=== PATIENT | male | born 1985 | race Caucasian/White ===

== ENCOUNTER 2021-04-15 12:01 | Inpatient (IN) ==
[2021-04-15 12:44] LABS: Basophils # (auto) 0.02 K/uL (0-0.2); Basophils % (auto) 0.2 %; Immature Granulocytes # (auto) 0.04 K/uL (0.00-0.02); Immature Granulocytes % (auto) 0.4 %; Lymphocytes # (auto) 1.16 K/uL (1.2-3.4); Lymphocytes % (auto) 11.5 %; Mean Corpuscular Hgb Conc 34.2 g/dL (32-36); Mean Corpuscular Volume 87.6 fL (80-100); Mean Platelet Volume 10.7 fL (7.4-10.4); Monocytes # (auto) 0.77 K/uL (0.11-0.59); Monocytes % (auto) 7.6 %; Neutrophils # (auto) 7.92 K/uL (1.4-6.5); Neutrophils % (auto) 78.3 %; Platelet Count 163 K/uL (130-400); RDW Coefficient of Variation 12.8 % (11.5-14.5); RDW Standard Deviation 41.6 fL (36.4-46.3); Red Blood Count 4.34 M/uL (4.7-6.1); White Blood Count 10.11 K/uL (4.8-10.8)
[2021-04-15 13:00] LABS: Albumin Level 3.9 gm/dl (3.4-5.0); BUN Creatinine Ratio 15.1 (10-20); Calcium 8.3 mg/dl (8.5-10.1); Creatinine Clr Calc Pharmacy 127.4 ml/min; Est GFR (African American) 127.9 ml/min; Est GFR (Non-African American) 110.3 ml/min; Potassium 3.4 mmol/L (3.5-5.1)
[2021-04-15 13:13] LABS: Albumin Globulin Ratio 1.1 (0.9-2); Bilirubin,Total 1.2 mg/dl (0.2-1); Globulin 3.4 gm/dl (2.5-4.0); Total Protein 7.3 gm/dl (6.4-8.2)
[2021-04-15] MEDS ORDERED: PIPERACILL/TAZOBAC CONSULT ACTIVE PRN (13:55)
[2021-04-15] MEDS ORDERED: PIPERACILLIN/TAZOBACTAM 4.5 GM/120 ML BAG IV ONE (13:55)
[2021-04-15] MEDS ORDERED: MoRPHine SULFATE 4 MG/ML 1 ML CARP\\VIAL IV STA (13:59)
[2021-04-15] MEDS ORDERED: ONDANSETRON INJ 2 MG/ML 2 ML VIAL IV STA (13:59)
[2021-04-15] MEDS ORDERED: SODIUM CHLORIDE 0.9% 1000ML 1,000 ML IV SCH (14:00)
[2021-04-15] MEDS ORDERED: VANCOMYCIN HCL 1,750 MG in SODIUM CHLORIDE 0.9% 500 ML IV ONE (14:04)
[2021-04-15] MEDS ORDERED: VANCOMYCIN CONSULT ACTIVE PRN (14:04)
--- NOTE | 2021-04-15 14:15 | Emergency Department Note ---
History of Present Illness General Chief complaint: Swelling/Edema to Extremity Stated complaint: SWELLING IN FACE, CELLULITIS WHERE SWELLLING IS Time Seen by Provider: 04/15/21 13:49 History of Present Illness Maximum Pain Intensity: 7 This is a 35-year-old male that presents to the emergency department via private vehicle accompanied by with complaints of "swelling in face, cellulitis". The patient notes that this past Friday he began with what he describes as a pimple to the mid left forehead region. He notes no other trauma or injury to the area. This then seemed to enlarge and Friday. It was quite painful this past Friday and he tried to "pop" the area. He states that shortly thereafter he began with a tremendous amount of edema to the left periorbital region of the forehead. He presented to the ED for evaluation late yesterday evening. He underwent a CT scan that revealed periorbital cellulitis at that time. He was given IV clindamycin as well as p.o. clindamycin. He was discharged home. Patient notes worsening edema to the left parable region and now involving the right periorbital region therefore prompting return. Patient also rates current pain as a 7/10. He does note some minor discomfort to the left eye with certain movements but is unsure if that is secondary to the periorbital edema. Patient denies any pertinent past medical history, surgeries or allergies. Last dose of clindamycin was at 6 AM this morning. Home Medications Medication Instructions Recorded Confirmed Type ibuprofen 200 mg tablet 400 - 600 mg PO Q6H PRN 04/14/21 04/15/21 History clindamycin HCl 300 mg capsule 300 mg PO QID 10 Days #40 cap 04/15/21 04/15/21 Rx hydrocodone 5 mg-acetaminophen 325 1 tab PO Q6H PRN #12 tab 04/15/21 04/15/21 Rx mg tablet Allergies Allergy/AdvReac Type Severity Reaction Status Date / Time No Known Allergies Allergy Unknown Verified 04/14/21 22:15 Past Med/Surg History Medical History Alcohol use No significant past medical history Surgical History H/O hernia repair H/O right knee surgery Family History Other Heart disease Social History (Updated 04/15/21 @ 17:50 by Mariza Hutchins PA-C) Smoking Status: Current every day smoker Tobacco Type: E-cigarettes / Vaping Second Hand Exposure: No; Do You Dip or Chew Tobacco: No; Tobacco Cessation Education Requested by Patient: No Hx Alcohol Use: Yes Alcohol type: beer Alcohol Intake Frequency: 2-3 x/Week Alcohol Intake Frequency Comment: 4+ beers daily, last drink yesterday Hx Substance Use: No Preferred Language: Palauan Communication Ability: Effective Under Water Assistant Required: No Beliefs That Will Affect Care: None Current Living Situation: Spouse Other Information That Helps Us Care for You: No Feels Safe at Home: Yes Safety Concerns: Feels Safe At This Time Assistive Devices: None Review of Systems A total of 10 systems reviewed and were otherwise negative Physical Exam Vital Signs Vital Signs - 24 hr 04/15/21 12:26 Temperature 36.4 C L Temperature Source Temporal Artery Scan Pulse Rate 72 Respiratory Rate 16 Respiratory Effort / Characteristics Non-Labored Respiratory Depth Normal Blood Pressure 136/90 Blood Pressure Mean 105 Pulse Oximetry 97 Sepsis Recent Fever Within 48 Hours No Sepsis New/Unexplained Change in Mental Status No Sepsis Action Taken by Nursing No Action Required VITAL SIGNS - Vital signs and nursing notes were reviewed. Stable and afebrile. GENERAL - 35-year-old male appearing his stated age who is in no acute distress. Communicates well with provider and answers questions appropriately. SKIN -there is left periorbital erythema and edema noted as well as similar findings on the right but the left side does have increased erythema and edema compared to the right. No drainage from either orbit. There is also erythema and edema to the forehead region, predominantly the left side with what appears to be a small darkened erythematous area consistent with origin of infection. No drainage at this time. HEAD - NC/AT. EYES - PERRL with EOMI bilaterally with the eyelids retracted. No evidence of entrapment. Sclera anicteric. Edema as noted above. EARS - No deformities of external structures noted on gross examination bilaterally. No pain elicited with palpation of the tragus bilaterally. External auditory canals without discharge or otorrhea. Tympanic membranes pearly rodríguez without retraction or bulging. No fluid or purulent material visualized behind the TM. Handle of malleus, umbo, cone of light, pars tensa/flaccid all easily visualized. NOSE - Midline and without cyanosis. No epistaxis or purulent drainage noted. Septum midline without deviation or septal hematoma noted. MOUTH/OROPHARYNX - Without perioral cyanosis. Buccal mucosa pink and moist and without leukoplakia. Tongue midline with equal elevation of palate bilaterally. No tonsillar hypertrophy, erythema, or exudates noted. Good dentition noted. NECK - Neck with FROM. No nuchal rigidity. LUNGS - Chest wall symmetric without accessory muscle use, intercostals retractions, or central cyanosis. Normal vesicular breath sounds CTA B/L. No wheezes, rales, or rhonchi appreciated. CARDIAC - RRR with S1/S2. No murmur, rubs, or gallops appreciated. EXTREMITIES - No clubbing or peripheral cyanosis. +5/5 strength noted in UE/LE bilaterally. NEUROLOGIC - Cranial nerves II through XII grossly intact. PSYCH - A&Ox3 and cooperates fully with examiner. Pt is very pleasant and interacts well with examiner. Course Administered Medications Sodium Chloride (Nss 1000ml) 1,000 mls @ 125 mls/hr IV .Q8H [facility] Stop: 05/15/21 18:59 Last Admin: 04/15/21 19:52 Dose: 125 mls/hr Documented by: [id number] Metronidazole (Flagyl) 500 mg in 100 mls @ 100 mls/hr IV Q8H [facility]; Protocol Stop: 04/22/21 18:59 Last Infusion: 04/15/21 20:53 Dose: 0 mls/hr Documented by: [id number] Admin: 04/15/21 19:53 Dose: 100 mls/hr Documented by: [id number] Ceftriaxone Sodium 2,000 mg/ (Dextrose) 70 mls @ 140 mls/hr IV Q24H [facility] Stop: 04/22/21 19:59 Last Infusion: 04/15/21 20:23 Dose: 0 mls/hr Documented by: [id number] Admin: 04/15/21 19:53 Dose: 140 mls/hr Documented by: [id number] Melatonin (Melatonin 3 Mg Tab) 3 mg PO HS PRN PRN Reason: Sleep Stop: 05/15/21 19:59 Last Admin: 04/15/21 20:55 Dose: 3 mg Documented by: [id number] Discontinued Medications Sodium Chloride (Nss 1000ml) 1,000 mls @ 999 mls/hr IV .Q1H1M [facility] Stop: 04/15/21 15:00 Last Infusion: 04/15/21 16:01 Dose: 0 mls/hr Documented by: [id number] Admin: 04/15/21 14:47 Dose: 999 mls/hr Documented by: [id number] Piperacillin Sod/Tazobactam Sod (Zosyn) 4.5 gm in 120 mls @ 240 mls/hr IV NOW ONE Stop: 04/15/21 14:24 Last Infusion: 04/15/21 15:45 Dose: 0 mls/hr Documented by: [id number] Admin: 04/15/21 14:47 Dose: 240 mls/hr Documented by: [id number] Vancomycin HCl 1,750 mg/ (Sodium Chloride) 535 mls @ 200 mls/hr IV NOW ONE Stop: 04/15/21 16:44 Last Infusion: 04/15/21 19:00 Dose: 0 mls/hr Documented by: [id number] Admin: 04/15/21 16:04 Dose: 200 mls/hr Documented by: [id number] Ioversol (Optiray 320 100ml) 93 ml IV ONCE ONE Stop: 04/15/21 14:28 Last Admin: 04/15/21 14:28 Dose: 93 ml Documented by: [id number] Miscellaneous Information (Consult Pharmacy) 1 ea N/A NOW STA Stop: 04/15/21 17:21 Last Admin: 04/15/21 19:52 Dose: Not Given Documented by: [id number] Morphine Sulfate (Morphine Sulfate 4 Mg/Ml 1 Ml Carp\\Vial) 4 mg IV NOW STA Stop: 04/15/21 14:00 Last Admin: 04/15/21 14:47 Dose: 4 mg Documented by: [id number] Morphine Sulfate (Morphine Sulfate 4 Mg/Ml 1 Ml Carp\\Vial) 4 mg IV Q30M PRN PRN Reason: pain Stop: 04/29/21 15:39 Last Admin: 04/15/21 18:06 Dose: 4 mg Documented by: [id number] Admin: 04/15/21 18:03 Dose: 4 mg Documented by: [id number] Admin: 04/15/21 16:03 Dose: 4 mg Documented by: [id number] Ondansetron HCl (Ondansetron Inj 2 Mg/Ml 2 Ml Vial) 4 mg IV NOW STA Stop: 04/15/21 14:00 Last Admin: 04/15/21 14:47 Dose: 4 mg Documented by: [id number] Medical Decision Making Laboratory Data Result diagrams: 04/15/21 12:34 04/15/21 12:34 Lab Results 04/15/21 04/15/21 04/15/21 Range/Units 12:34 12:34 12:34 WBC 10.11 (4.8-10.8) K/uL RBC 4.34 L (4.7-6.1) M/uL Hgb 13.0 L (14.0-18.0) g/dL Hct 38.0 L (42-52) % MCV 87.6 (80-100) fL MCH 30.0 (25-34) pg MCHC 34.2 (32-36) g/dL RDW Std Deviation 41.6 (36.4-46.3) fL RDW Coeff of Suzanne 12.8 (11.5-14.5) % Plt Count 163 (130-400) K/uL MPV 10.7 H (7.4-10.4) fL Immature Gran % (Auto) 0.4 % Neut % (Auto) 78.3 % Lymph % (Auto) 11.5 % Wilkin % (Auto) 7.6 % Eos % (Auto) 2.0 % Baso % (Auto) 0.2 % Neut # (Auto) 7.92 H (1.4-6.5) K/uL Lymph # (Auto) 1.16 L (1.2-3.4) K/uL Wilkin # (Auto) 0.77 H (0.11-0.59) K/uL Eos # (Auto) 0.20 (0-0.5) K/uL Baso # (Auto) 0.02 (0-0.2) K/uL Immature Gran # (Auto) 0.04 H (0.00-0.02) K/uL ESR 5 (0-15) mm/hr Sodium 136 (136-145) mmol/L Potassium 3.4 L (3.5-5.1) mmol/L Chloride 104 (98-107) mmol/L Carbon Dioxide 27 (21-32) mmol/L Anion Gap 5.0 (3-11) BUN 14 (7-18) mg/dl Creatinine 0.91 (0.6-1.4) mg/dl Est Cr Clr Drug Dosing 127.4 ml/min Est GFR ( Amer) 127.9 ml/min Est GFR (Non-Af Amer) 110.3 ml/min BUN/Creatinine Ratio 15.1 (10-20) Glucose 99 (70-99) mg/dl Calcium 8.3 L (8.5-10.1) mg/dl Total Bilirubin 1.2 H D (0.2-1) mg/dl AST 21 (15-37) U/L ALT 36 (12-78) U/L Alkaline Phosphatase 81 (45-117) U/L C-Reactive Protein (0-0.29) mg/dl Total Protein 7.3 (6.4-8.2) gm/dl Albumin 3.9 (3.4-5.0) gm/dl Globulin 3.4 (2.5-4.0) gm/dl Albumin/Globulin Ratio 1.1 (0.9-2) Procalcitonin (0-0.5) ng/ml COVID-19 Eval Order SARS-CoV-2 (PCR) (Negative) 04/15/21 04/15/21 04/15/21 Range/Units 12:34 14:21 15:43 WBC (4.8-10.8) K/uL RBC (4.7-6.1) M/uL Hgb (14.0-18.0) g/dL Hct (42-52) % MCV (80-100) fL MCH (25-34) pg MCHC (32-36) g/dL RDW Std Deviation (36.4-46.3) fL RDW Coeff of Suzanne (11.5-14.5) % Plt Count (130-400) K/uL MPV (7.4-10.4) fL Immature Gran % (Auto) % Neut % (Auto) % Lymph % (Auto) % Wilkin % (Auto) % Eos % (Auto) % Baso % (Auto) % Neut # (Auto) (1.4-6.5) K/uL Lymph # (Auto) (1.2-3.4) K/uL Wilkin # (Auto) (0.11-0.59) K/uL Eos # (Auto) (0-0.5) K/uL Baso # (Auto) (0-0.2) K/uL Immature Gran # (Auto) (0.00-0.02) K/uL ESR (0-15) mm/hr Sodium (136-145) mmol/L Potassium (3.5-5.1) mmol/L Chloride (98-107) mmol/L Carbon Dioxide (21-32) mmol/L Anion Gap (3-11) BUN (7-18) mg/dl Creatinine (0.6-1.4) mg/dl Est Cr Clr Drug Dosing ml/min Est GFR ( Amer) ml/min Est GFR (Non-Af Amer) ml/min BUN/Creatinine Ratio (10-20) Glucose (70-99) mg/dl Calcium (8.5-10.1) mg/dl Total Bilirubin (0.2-1) mg/dl AST (15-37) U/L ALT (12-78) U/L Alkaline Phosphatase (45-117) U/L C-Reactive Protein 1.23 H (0-0.29) mg/dl Total Protein (6.4-8.2) gm/dl Albumin (3.4-5.0) gm/dl Globulin (2.5-4.0) gm/dl Albumin/Globulin Ratio (0.9-2) Procalcitonin < 0.05 (0-0.5) ng/ml COVID-19 Eval Order Covid19 at [facility] SARS-CoV-2 (PCR) (Negative) 04/15/21 Range/Units 15:43 WBC (4.8-10.8) K/uL RBC (4.7-6.1) M/uL Hgb (14.0-18.0) g/dL Hct (42-52) % MCV (80-100) fL MCH (25-34) pg MCHC (32-36) g/dL RDW Std Deviation (36.4-46.3) fL RDW Coeff of Suzanne (11.5-14.5) % Plt Count (130-400) K/uL MPV (7.4-10.4) fL Immature Gran % (Auto) % Neut % (Auto) % Lymph % (Auto) % Wilkin % (Auto) % Eos % (Auto) % Baso % (Auto) % Neut # (Auto) (1.4-6.5) K/uL Lymph # (Auto) (1.2-3.4) K/uL Wilkin # (Auto) (0.11-0.59) K/uL Eos # (Auto) (0-0.5) K/uL Baso # (Auto) (0-0.2) K/uL Immature Gran # (Auto) (0.00-0.02) K/uL ESR (0-15) mm/hr Sodium (136-145) mmol/L Potassium (3.5-5.1) mmol/L Chloride (98-107) mmol/L Carbon Dioxide (21-32) mmol/L Anion Gap (3-11) BUN (7-18) mg/dl Creatinine (0.6-1.4) mg/dl Est Cr Clr Drug Dosing ml/min Est GFR ( Amer) ml/min Est GFR (Non-Af Amer) ml/min BUN/Creatinine Ratio (10-20) Glucose (70-99) mg/dl Calcium (8.5-10.1) mg/dl Total Bilirubin (0.2-1) mg/dl AST (15-37) U/L ALT (12-78) U/L Alkaline Phosphatase (45-117) U/L C-Reactive Protein (0-0.29) mg/dl Total Protein (6.4-8.2) gm/dl Albumin (3.4-5.0) gm/dl Globulin (2.5-4.0) gm/dl Albumin/Globulin Ratio (0.9-2) Procalcitonin (0-0.5) ng/ml COVID-19 Eval Order SARS-CoV-2 (PCR) NEGATIVE (Negative) Imaging Data Radiologist's Impression: Face CT 04/15/21 14:23 CT facial bones w con HISTORY: 35 years-old Male L>R periorbital edema, erythema, pain. Acute facial pain and swelling COMPARISON: CT maxillofacial 04/14/2021 TECHNIQUE: Multiple axial CT images of the maxillofacial bones were obtained following the intravenous administration of 93 mL Optiray 320. A dose lowering technique was used consistent with the principals of ANEUDY. FINDINGS: Moderate subcutaneous edema with skin thickening of the forehead ascending into the left periorbital tissues and lateral left cheek. The subcutaneous edema within the left lateral cheek has progressed. Mild right periorbital s ubcutaneous edema has also mildly progressed. Ill-defined peripherally enhancing collection in the left prefrontal distribution on image 11 suggestive of phlegmon redemonstrated measuring 1.2 cm. No drainable fluid collection. Bilateral optic nerve drusen's. The bilateral globes, orbits and post septal tissues are otherwise unremarkable. Streak artifact from dental amalgam hardware. No pathologically enlarged lymph nodes. Patent airway. The imaged intracranial structures appear unremarkable. No acute fracture. Mastoid air cells and middle ear cavities are clear. No osseous erosions. Scattered dental caries redemonstrated with periapical lucency is noted involving the left mandibular central incisor and left maxillary central incisor. IMPRESSION: 1. Mildly progressed facial and periorbital cellulitis with unchanged 1.2 cm ph legmon within the left frontal soft tissues. 2. No post septal inflammatory changes. No drainable fluid collection. 3. Odontogenic disease as above. ACT 112: Negative or not required by law. The above report was generated using voice recognition software. It may contain grammatical, syntax or spelling errors. Electronically signed by: Duc Odell M.D. 04/15/2021 3:20 PM MDM Narrative Patient was seen and evaluated as above in room C04. Review was performed of nursing notes and vital signs. I did review pertinent previous visits and patient history. After obtaining a thorough history and physical examination the above work up was performed. Patient presents to us today with left greater than right periorbital edema and forehead erythema and edema. Although this certainly could be reactive edema, a worsening cellulitis cannot be ruled out. Patient was seen here in the ED and I reviewed that visit from last night. He had a CT scan of the face about 14 hours ago. Vital signs stable. Options of care were discussed with the patient. IV access established. Broad- spectrum IV antibiotics were ordered to include vancomycin and Zosyn. He was ordered morphine for pain, Zofran for nausea. Current pain 7/10. I discussed presentation with the attending physician as well as the on-call character impersonator, Dr. Chris. At this time noting the worsening symptoms a repeat CT scan of the face with contrast is recommended after discussing the case with Dr. Chris to further evaluate and ensure that at this time there has been no progression to involve the left orbit by CT. Patient aware of this and amenable to proceeding with this. Patient also seen by the attending physician. Results of the CT scan as above. Mildly progressive facial and periorbital cellulitis with unchanged 1.2 cm phlegmon within the left frontal soft tissues. No post septal inflammatory changes. No drainable fluid collection. They did comment upon some odontogenic disease. The patient at this time certainly will benefit from inpatient management. Case discussed with the hospitalist. Please refer to further documentation regarding his stay. No leukocytosis. Mild anemia noted. No emergent metabolic disturbance. Mild elevation of CRP at 1.23. Pro-Antony normal. Covid testing negative. Case was discussed with the attending physician. GCS: 15 In the evaluation and treatment of this patient, the following differential diagnoses were considered: Corneal Abrasion, Conjunctivitis, Eye Contusion, Globe Injury, Orbital Floor Injury (Blowout Fracture), Corneal Ulcer, Keratitis, Herpes Zoster Opthalmic, Blepharitis, Orbital Cellulitis, Iritis, Scleritis/E piscleritis, Uveitis, Temporal Arteritis, orbital cellulitis, periorbital cellulitis, meningitis, encephalitis, subconjunctival Hemorrhage, among others. Impression & Plan Cellulitis, face, Periorbital edema of both eyes, Periorbital cellulitis of left eye Discharge Plan Visit Data Chief Complaint: Swelling/Edema to Extremity Stated Complaint: SWELLING IN FACE, CELLULITIS WHERE SWELLLING IS ED Provider: Zakc Robb ED Midlevel Provider: Fredy Darling Discharge Problem: Cellulitis, face, Periorbital edema of both eyes, Periorbital cellulitis of left eye Patient Disposition: Admitted As Inpatient Discharge Instructions Interventions: ED Discharge Assessment Last Done: 04/15/21 18:20
[2021-04-15] MEDS ORDERED: OPTIRAY 320 100ml IV ONE (14:27)
--- NOTE | 2021-04-15 15:21 | CT Scan Report ---
CT facial bones w con HISTORY: 35 years-old Male L>R periorbital edema, erythema, pain. Acute facial pain and swelling COMPARISON: CT maxillofacial 04/14/2021 TECHNIQUE: Multiple axial CT images of the maxillofacial bones were obtained following the intravenou s administration of 93 mL Optiray 320. A dose lowering technique was used consistent with the princip als of ANEUDY. FINDINGS: Moderate subcutaneous edema with skin thickening of the forehead ascending into the left periorbital tissues and lateral left cheek. The subcutaneous edema within the left lateral cheek has progressed. Mild right periorbital subcutaneous edema has also mildly progressed. Ill-defined peripherally enhanc ing collection in the left prefrontal distribution on image 11 suggestive of phlegmon redemonstrated measuring 1.2 cm. No drainable fluid collection. Bilateral optic nerve drusen's. The bilateral globes , orbits and post septal tissues are otherwise unremarkable. Streak artifact from dental amalgam hard lam. No pathologically enlarged lymph nodes. Patent airway. The imaged intracranial structures appear unremarkable. No acute fracture. Mastoid air cells and midd le ear cavities are clear. No osseous erosions. Scattered dental caries redemonstrated with periapica l lucency is noted involving the left mandibular central incisor and left maxillary central incisor. IMPRESSION: 1. Mildly progressed facial and periorbital cellulitis with unchanged 1.2 cm phlegmon within the left frontal soft tissues. 2. No post septal inflammatory changes. No drainable fluid collection. 3. Odontogenic disease as above. ACT 112: Negative or not required by law. The above report was generated using voice recognition software. It may contain grammatical, syntax o r spelling errors. Electronically signed by: Duc Odell M.D. 04/15/2021 3:20 PM
[2021-04-15] MEDS: MoRPHine SULFATE 4 MG/ML 1 ML CARP\\VIAL IV PRN ×3 (16:03→18:06)
--- NOTE | 2021-04-15 16:04 | History & Physical Report ---
Date of Service April 15, 2021 Assessment & Plan (1) Periorbital edema of both eyes: (2) Cellulitis of face: Plan: This is a 35yo M with PMH of alcohol use who presents with worsening swelling and pain on forehead extending to eyes consistent with facial and periorbital cellulitis. Boil on forehead with erythema and edema consistent with cellulitis extending to periorbital region bilaterally Case discussed with international affairs vice president ophthalmology Dr. Chris who recommended repeat CT scan to ensure no orbital involvement Face CT with mildly progressed facial and periorbital cellulitis with unchanged 1.2 cm phlegmon within the left frontal soft tissues. No post septal i nflammatory changes. No drainable fluid collection. Given IV Zosyn and vanco in ER - plan to continue empiric abx with vanco, rocephin and flagyl IV fluids, pain control Ophtho consulted Consider repeating CT scan in AM - if evidence of developing orbital involvement, ophtho recommends transfer (3) Alcohol use: Plan: Endorses 4+ beers nightly No history of withdrawal Alchohol withdrawal precautions, at risk IV ativan PRN DVT Ppx: SCDs Code status: FULL PCP: Ryan Dispo: Admitted to PCU Patient seen in collaboration with Dr. Soliz. Please see addendum. Plan: 55-year-old gentleman with PMH of alcohol use, vitiligo, and history of recurrent boils came in today 04/15 with complaint of progressive swelling and redness over his forehead involving both his eyes. Per the patient, a boil started on left side of his forehead 4 to 5 days ago which persisted until when he ruptured it 1 day ago. Through the day the swelling spread through his left eye and he visited emergency where he was given IV clindamycin and discharged on oral clindamycin. His swelling and redness spread to the right side as well and hence he decided to visit emergency again. On examination: GENERAL: Alert and oriented x3. NAD, on RA. HEENT: Erythema and swelling over forehead and eyes (L>R), it was difficult for the patient to open his Left eye. NECK: No JVD, no neck masses. HEART: S1 and S2 heard. Regular rate and rhythm. No murmur, no gallop. RESPIRATORY SYSTEM: Normal AP diameter. No accessory muscle use. No wheezing, no crackles. ABDOMEN: Soft, bowel sounds present, nontender, no distention. CENTRAL NERVOUS SYSTEM: Alert and oriented x3. No facial droop. Speech is clear. Obeys simple commands. Moves extremities. EXTREMITIES: No edema, no erythema seen. Since the patient complains of pain with movement of his eyes but CT face is negative for orbital cellulitis. We will treat him in the line of orbital cellulitis and get ophthalmology and ID consult on him. History of Present Illness Chief Complaint: facial swelling Primary Care Provider: Leah Davis DO This is a 35yo M with PMH of alcohol use who presents with worsening swelling and pain on forehead extending to eyes. Endorses pimple/boil on mid-left forehead a few days ago that grew larger and he attempted to "pop" last evening. Became more painful and soon after developed swelling to forehead region extending to left periorbital region of the forehead. Presented to the ED for evaluation late yesterday evening and underwent a CT scan that revealed periorbital cellulitis at that time. He was given IV clindamycin and discharged home on PO clindamycin. Developed worsening edema early this morning into today extending to R periorbital region as well prompting return to ER. Endorses pain throughout face, specifically on forehead near original lesion. Also with impaired visual gan due to swelling. When he "opens" eyelids manually he denies any visual disturbance. Denies any fever, chills, lightheadedness, chest pain, SOB, nausea, vomiting, abdominal pain, dysuria, diarrhea or constipation. Allergies Allergy/AdvReac Type Severity Reaction Status Date / Time No Known Allergies Allergy Unknown Verified 04/14/21 22:15 Home Medications Medication Instructions Recorded Confirmed Type ibuprofen 200 mg tablet 400 - 600 mg PO Q6H PRN 04/14/21 04/15/21 History clindamycin HCl 300 mg capsule 300 mg PO QID 10 Days #40 cap 04/15/21 04/15/21 Rx hydrocodone 5 mg-acetaminophen 325 1 tab PO Q6H PRN #12 tab 04/15/21 04/15/21 Rx mg tablet Past Med/Surg History Medical History Alcohol use No significant past medical history Surgical History H/O hernia repair H/O right knee surgery Family History Other Heart disease Social History (Updated 04/15/21 @ 17:50 by Mariza Hutchins PA-C) Smoking Status: Current every day smoker Tobacco Type: E-cigarettes / Vaping Second Hand Exposure: No; Do You Dip or Chew Tobacco: No; Tobacco Cessation Education Requested by Patient: No Hx Alcohol Use: Yes Alcohol type: beer Alcohol Intake Frequency: 2-3 x/Week Alcohol Intake Frequency Comment: 4+ beers daily, last drink yesterday Hx Substance Use: No Preferred Language: Urdu Communication Ability: Effective Electronics Inspector Required: No Beliefs That Will Affect Care: None Current Living Situation: Spouse Other Information That Helps Us Care for You: No Feels Safe at Home: Yes Safety Concerns: Feels Safe At This Time Assistive Devices: None Review of Systems Review of Systems: At least ten systems reviewed and negative except as noted in the HPI. Physical Exam Physical Exam: General Appearance: WD/WN, vitals as above, NAD, sitting up in bed, pleasant, conversing easily Head: normocephalic, atraumatic Eyes: significant periorbital edema L>R, PERRL when eyelids manually opened, conjunctivae normal, anicteric sclerae ENT: external ear and nose normal, oropharynx normal Neck: normal visual inspection, trachea midline, no thyromegaly Respiratory: normal respiratory effort, lungs clear to auscultation, no wheeze, rales, rhonchi. No accessory muscle use Cardiovascular: regular rate, rhythm, no murmur, normal peripheral pulses, no BLE edema. Vessels: no JVD Chest: normal inspection of chest Abdomen/GI: normal bowel sounds, soft, nontender, no hepatosplenomegaly Extremities/Musculoskeletal: no cyanosis or clubbing, extremities motor strength 5/5 Neurologic: PERRL, EOMI, accommodation nl, no face palsy, no dysarthria, CN's II-XI intact bilaterally and moves all extremities Psychiatric: A+Ox3, euthymic affect Skin: normal color, warm/dry. + Mid left forehead with appearance of furuncle with surrounding erythema and edema that is painful to touch. Edema extends to periorbital region bilaterally Results & Data Results & Data ([facility]) Vital Signs (Past 12 Hours) Vital Signs Temp Pulse Resp BP Pulse Ox 04/15/21 12:26 36.4 C L 72 16 136/90 97 Laboratory Results Short CBC 04/15/21 Range/Units 12:34 WBC 10.11 (4.8-10.8) K/uL Hgb 13.0 L (14.0-18.0) g/dL Hct 38.0 L (42-52) % Plt Count 163 (130-400) K/uL BMP 04/15/21 12:34 Sodium 136 Potassium 3.4 L Chloride 104 Carbon Dioxide 27 BUN 14 Creatinine 0.91 Glucose 99 Calcium 8.3 L Liver Function 04/15/21 Range/Units 12:34 Total Bilirubin 1.2 H D (0.2-1) mg/dl AST 21 (15-37) U/L ALT 36 (12-78) U/L Alkaline Phosphatase 81 (45-117) U/L Albumin 3.9 (3.4-5.0) gm/dl Diagnostic Findings Face CT 04/15/21 14:23 CT facial bones w con HISTORY: 35 years-old Male L>R periorbital edema, erythema, pain. Acute facial pain and swelling COMPARISON: CT maxillofacial 04/14/2021 TECHNIQUE: Multiple axial CT images of the maxillofacial bones were obtained following the intravenous administration of 93 mL Optiray 320. A dose lowering technique was used consistent with the principals of ANEUDY. FINDINGS: Moderate subcutaneous edema with skin thickening of the forehead ascending into the left periorbital tissues and lateral left cheek. The subcutaneous edema within the left lateral cheek has progressed. Mild right periorbital subcutaneous edema has also mildly progressed. Ill-defined peripherally enhancing collection in the left prefrontal distribution on image 11 suggestive of phlegmon redemonstrated measuring 1.2 cm. No drainable fluid collection. Bilateral optic nerve drusen's. The bilateral globes, orbits and post septal tissues are otherwise unremarkable. Streak artifact from dental amalgam hardware. No pathologically enlarged lymph nodes. Patent airway. The imaged intracranial structures appear unremarkable. No acute fracture. Mastoid air cells and middle ear cavities are clear. No osseous erosions. Scattered dental caries redemonstrated with periapical lucency is noted involving the left mandibular central incisor and left maxillary central incisor. IMPRESSION: 1. Mildly progressed facial and periorbital cellulitis with unchanged 1.2 cm phlegmon within the left frontal soft tissues. 2. No post septal inflammatory changes. No drainable fluid collection. 3. Odontogenic disease as above. ACT 112: Negative or not required by law. The above report was generated using voice recognition software. It may contain grammatical, syntax or spelling errors. Electronically signed by: Duc Odell M.D. 04/15/2021 3:20 PM
[2021-04-15] MEDS ORDERED: CONSULT PHARMACY STA (17:20)
[2021-04-15] MEDS ORDERED: HYDROmorphone INJ 0.5 MG/0.5 ML SYR IV PRN (18:33)
[2021-04-15] MEDS ORDERED: POLYETHYLENE (MIRALAX) 17 GM PACK PO PRN (18:33)
[2021-04-15] MEDS ORDERED: ONDANSETRON INJ 2 MG/ML 2 ML VIAL IV PRN (18:33)
[2021-04-15] MEDS ORDERED: LORazepam 1 MG/2 ML VIAL IV PRN (18:33)
--- NOTE | 2021-04-15 19:47 | Pharmacy Report ---
Pharmacy Abx Dose Short Note - Date of Service April 15, 2021 - Assessment & Plan Assessment 35 year old M on empiric antibiotics for bilateral periorbital cellulitis * received vancomycin and zosyn in the ED * vancomycin continued on admission, zosyn changed to ceftriaxone + flagyl * BC pending Plan Vancomycin * Loading dose: 1750 mg IV in ED (19 mg/kg) * Maintenance dose: 1500 mg IV q8h (per AUC nomogram) * AUC/JUNIOR is the preferred PK/PD target for vancomycin * Target AUC/JUNIOR = 400-600 * AUC guided dosing is effective and associated with decreased risk of nephrotoxicity * Drug level ordered for: 04/17 @0530 Pharmacy will continue to follow and will adjust dose/frequency as necessary. Thank you.
[2021-04-15] MEDS: SODIUM CHLORIDE 0.9% 1000ML 1,000 ML IV SCH (19:52)
[2021-04-15] MEDS: metroNIDAZOLE 500 MG/100 ML BAG IV SCH (19:53)
[2021-04-15] MEDS: cefTRIAXone SODIUM 2,000 MG in DEXTROSE 5% 50 ML IV SCH (19:53)
[2021-04-15] MEDS: MELATONIN 3 MG TAB PO PRN (20:55)
[2021-04-15] MEDS: VANCOMYCIN HCL 1,500 MG in SODIUM CHLORIDE 0.9% 500 ML IV SCH (21:48)
[2021-04-16] MEDS: SODIUM CHLORIDE 0.9% 1000ML 1,000 ML IV SCH ×2 (03:52→13:36)
[2021-04-16] MEDS: metroNIDAZOLE 500 MG/100 ML BAG IV SCH ×3 (03:52→18:24)
[2021-04-16] MEDS: VANCOMYCIN HCL 1,500 MG in SODIUM CHLORIDE 0.9% 500 ML IV SCH ×3 (05:16→21:49)
[2021-04-16] MEDS: ACETAMINOPHEN 325 MG TAB PO PRN ×2 (07:32→14:31)
[2021-04-16 07:34] LABS: Hematocrit (blood only) 35.4 % (42-52); Hemoglobin 11.7 g/dL (14.0-18.0); Mean Corpuscular Hgb Conc 33.1 g/dL (32-36); Mean Corpuscular Volume 90.8 fL (80-100); Mean Platelet Volume 10.7 fL (7.4-10.4); Platelet Count 161 K/uL (130-400); RDW Coefficient of Variation 13.1 % (11.5-14.5); RDW Standard Deviation 43.6 fL (36.4-46.3); White Blood Count 8.93 K/uL (4.8-10.8)
[2021-04-16 08:06] LABS: BUN Creatinine Ratio 7.8 (10-20); Calcium 7.8 mg/dl (8.5-10.1); Creatinine Clr Calc Pharmacy 152.4 ml/min; Est GFR (African American) 138.9 ml/min; Est GFR (Non-African American) 119.9 ml/min; Potassium 3.5 mmol/L (3.5-5.1)
[2021-04-16] MEDS ORDERED: IBUPROFEN 600 MG TAB PO PRN (15:26)
--- NOTE | 2021-04-16 17:41 | Hospitalist Progress Note ---
Date of Service April 16, 2021 Assessment & Plan (1) Periorbital cellulitis: (2) Periorbital edema of both eyes: (3) Cellulitis of face: Plan: 55-year-old gentleman with PMH of alcohol use, vitiligo, and history of recurrent boils came in today 04/15 with complaint of progressive swelling and redness over his forehead involving both his eyes. Per the patient, a boil started on left side of his forehead 4 to 5 days ago which persisted until when he ruptured it 1 day ago. Through the day the swelling spread through his left eye and he visited emergency where he was given IV clindamycin and discharged on oral clindamycin. His swelling and redness spread to the right side as well and hence he decided to visit emergency again. He is managed for the following: #. Periorbital cellulitis vs orbital cellulitis Since the patient complains of pain with movement of his eyes at presentation but CT face is negative for orbital cellulitis, he was treated in the line of orbital cellulitis ID and Opthal are consulted, awaiting recommendations. Pt reports improvement in swelling and pain. c/w iv ATB until further recs from ID #. Alcohol use: Endorses 4+ beers nightly no h/o withdrawal keep alert for withdrawal symptoms while inpatient #. DVT Px: SCDs Pt eating OK, will DC IVF and repeat his labs tomorrow AM. Admission and Anticipated Discharge Date Admission Date: April 15, 2021 Subjective Patient was lying down in bed, NAD, on RA. Patient denies Headache, Dizziness, Fever, Chills, Sore throat, Cough, Chest pain, palpitations, SOB, Belly pain, pain/burning while passing urine. No issues overnight. Infact he was able to sleep well overnight. His swelling over forehead and b/l eyes has gone down markedly. Physical Exam Physical Exam: GENERAL: Alert and oriented x3. NAD, on RA. HEENT: Erythema and swelling over forehead and eyes (L>R) has gone down compared to yesterday NECK: No JVD, no neck masses. HEART: S1 and S2 heard. Regular rate and rhythm. No murmur, no gallop. RESPIRATORY SYSTEM: Normal AP diameter. No accessory muscle use. No wheezing, no crackles. ABDOMEN: Soft, bowel sounds present, nontender, no distention. CENTRAL NERVOUS SYSTEM: Alert and oriented x3. No facial droop. Speech is clear. Obeys simple commands. Moves extremities. EXTREMITIES: No edema, no erythema seen. Results & Data Results & Data ([facility]) Vital Signs (Past 12 Hours) Vital Signs Temp Pulse Pulse Resp BP Pulse Ox 04/16/21 15:36 37.1 C 72 17 127/75 96 04/16/21 14:58 69 04/16/21 10:52 36.8 C 65 17 120/77 95 04/16/21 08:01 86 04/16/21 06:58 37.2 C 73 17 122/75 93
[2021-04-16] MEDS: cefTRIAXone SODIUM 2,000 MG in DEXTROSE 5% 50 ML IV SCH (19:40)
[2021-04-16] MEDS ORDERED: GABAPENTIN 600 MG TAB PO ONE (20:50)
[2021-04-16] MEDS ORDERED: GABAPENTIN 1200MG ALCOHOL WITHDRAWAL LOAD PO STA (20:50)
[2021-04-16] MEDS ORDERED: ATIVAN IV ALCOHOL WITHDRAWL IV PRN (20:50)
[2021-04-16] MEDS: LORazepam 3 MG/6 ML VIAL IV PRN ×2 (21:14→23:36)
[2021-04-16] MEDS: LORazepam 1 MG/2 ML VIAL IV PRN (22:15)
[2021-04-17] MEDS: LORazepam 3 MG/6 ML VIAL IV PRN ×2 (00:06→01:25)
[2021-04-17] MEDS: metroNIDAZOLE 500 MG/100 ML BAG IV SCH ×2 (02:54→11:10)
[2021-04-17] MEDS: LORazepam 1 MG/2 ML VIAL IV PRN ×2 (03:16→23:04)
[2021-04-17] MEDS ORDERED: VANCOMYCIN TROUGH ONE (05:30)
[2021-04-17 05:38] LABS: Hematocrit (blood only) 35.2 % (42-52); Hemoglobin 11.8 g/dL (14.0-18.0); Mean Corpuscular Hemoglobin 30.2 pg (25-34); Mean Corpuscular Hgb Conc 33.5 g/dL (32-36); Mean Platelet Volume 10.9 fL (7.4-10.4); Platelet Count 159 K/uL (130-400); RDW Coefficient of Variation 12.8 % (11.5-14.5); RDW Standard Deviation 41.9 fL (36.4-46.3); Red Blood Count 3.91 M/uL (4.7-6.1); White Blood Count 5.97 K/uL (4.8-10.8)
[2021-04-17] MEDS: LORazepam 2 MG/4 ML VIAL IV PRN ×8 (05:43→21:54)
[2021-04-17] MEDS: VANCOMYCIN HCL 1,500 MG in SODIUM CHLORIDE 0.9% 500 ML IV SCH ×2 (05:43→13:07)
[2021-04-17] MEDS: GABAPENTIN 600 MG TAB PO SCH ×3 (05:44→21:03)
[2021-04-17 06:10] LABS: BUN Creatinine Ratio 11.1 (10-20); Creatinine Clr Calc Pharmacy 170.9 ml/min; Est GFR (African American) 144.6 ml/min; Est GFR (Non-African American) 124.7 ml/min; Potassium 3.6 mmol/L (3.5-5.1)
[2021-04-17] MEDS ORDERED: GABAPENTIN 1200MG ALCOHOL WITHDRAWAL LOAD PO STA (13:09)
[2021-04-17] MEDS ORDERED: GABAPENTIN 600 MG TAB PO ONE (13:09)
--- NOTE | 2021-04-17 14:16 | Pharmacy Report ---
Pharmacy Abx Dose Progress Nt - Date of Service April 17, 2021 - Pharmacy Dosing Scope The patient is currently receiving the following antimicrobial agents per Pharmacy consult: Vancomycin 1500 mg IV/PO every 8 hours - Objective Vital Signs (Past 12hrs): Vital Signs Temp Pulse Resp BP Pulse Ox 04/17/21 11:42 37.0 C 84 19 137/90 97 04/17/21 07:34 36.8 C 71 18 127/84 97 04/17/21 03:50 36.5 C 68 18 143/90 H 97 Lab Results (24hrs): Laboratory Tests (24 Hours) 04/17/21 04/17/21 04/17/21 05:28 05:28 05:28 WBC 5.97 Creatinine 0.69 Est Cr Clr Drug Dosing 170.9 Vancomycin Trough 10.5 - Assessment & Plan Assessment 35 year old M receiving Vancomycin for treatment of Periorbital Cellulitis Day # 3 of antimicrobial therapy ID to see patient this afternoon and make recommendations Per hospitalist- patient is improving on current regimen Plan Vancomycin IV * Trough level of 10.5 mcg/mL is near - therapeutic but on the lower end of the trough range * Considered increasing dose to achieve trough level of closer to 15 mcg/ml but after discussion with hospitalist will just continue current dosing. Pt is im proving on current dosing and ID will likely change to PO option soon. * Continue dose of 1500 mg IV every 8 hours * Goal trough level for cellulitis : 10 to 15 mcg/mL * Will re-order trough level in a few days if vanco is continued Pharmacy will continue to follow and will adjust dose/frequency as necessary. Thank you.
[2021-04-17] MEDS ORDERED: LINEZOLID CONSULT ACTIVE PRN (15:52)
[2021-04-17] MEDS ORDERED: LINEZOLID 600 MG/300 ML D5W IV SCH (17:00)
[2021-04-17] MEDS: LINEZOLID 600 MG/300 ML BAG IV SCH (17:05)
[2021-04-17] MEDS ORDERED: GABAPENTIN 600 MG TAB PO SCH (19:15)
--- NOTE | 2021-04-17 19:17 | Hospitalist Progress Note ---
Date of Service April 17, 2021 Assessment & Plan (1) Periorbital cellulitis: (2) Periorbital edema of both eyes: (3) Cellulitis of face: Plan: 55-year-old gentleman with PMH of alcohol use, vitiligo, and history of recurrent boils came in today 04/15 with complaint of progressive swelling and redness over his forehead involving both his eyes. Per the patient, a boil started on left side of his forehead 4 to 5 days ago which persisted until when he ruptured it 1 day ago. Through the day the swelling spread through his left eye and he visited emergency where he was given IV clindamycin and discharged on oral clindamycin. His swelling and redness spread to the right side as well and hence he decided to visit emergency again. He is managed for the following: #. Periorbital cellulitis vs orbital cellulitis Since the patient complains of pain with movement of his eyes at presentation but CT face is negative for orbital cellulitis, he was treated in the line of orbital cellulitis ID and Opthal are consulted, awaiting recommendations. Pt reports improvement in swelling and pain. 04/17 ID recommended stopping Rocephin and metronidazole; replacing vancomycin with linezolid. Continue with linezolid until 04/20 evening dose per ID recommendation. #. Boil On the forehead, consulted general surgery for I&D. #. Alcohol abuse/alcohol withdrawal: Endorses 4+ beers nightly no h/o withdrawal Patient underwent alcohol withdrawal on the night of 04/16 needing 60 mg of Ativan overnight per RN Continue with alcohol AWSS protocol #. DVT Px: SCDs Patient so far eating okay but might need IV fluid. We'll send CBC and lytes for tomorrow. Follow-up with result. Admission and Anticipated Discharge Date Admission Date: April 15, 2021 Subjective Patient was lying down in bedsleeping, NAD, on RA. Patient denies Headache, Dizziness, Fever, Chills, Sore throat, Cough, Chest pain, palpitations, SOB, Belly pain, pain/burning while passing urine. He underwent alcohol withdrawal overnight. He required 16 mg of Ativan overnight per RN and 2 mg in the morning. His swelling over forehead and b/l eyes has gone down markedly. Physical Exam Physical Exam: GENERAL: Alert and oriented x3. NAD, on RA. HEENT: Erythema and swelling over forehead and eyes (L>R) has gone down compared to yesterday NECK: No JVD, no neck masses. HEART: S1 and S2 heard. Regular rate and rhythm. No murmur, no gallop. RESPIRATORY SYSTEM: Normal AP diameter. No accessory muscle use. No wheezing, no crackles. ABDOMEN: Soft, bowel sounds present, nontender, no distention. CENTRAL NERVOUS SYSTEM: Alert and oriented x3. No facial droop. Speech is clear. Obeys simple commands. Moves extremities. EXTREMITIES: No edema, no erythema seen. Results & Data Results & Data ([facility]) Vital Signs (Past 12 Hours) Vital Signs Temp Pulse Resp BP Pulse Ox 04/17/21 15:29 36.9 C 74 20 138/89 96 04/17/21 11:42 37.0 C 84 19 137/90 97 04/17/21 07:34 36.8 C 71 18 127/84 97
[2021-04-17] MEDS: FOLIC ACID 1 MG TAB PO SCH (20:14)
[2021-04-17] MEDS: NICOTINE 14 MG/24 HR PATCH TD SCH (20:43)
--- NOTE | 2021-04-17 21:04 | Surgery Consultation ---
Date of Consultation April 17, 2021 Assessment & Plan (1) Cellulitis and abscess of face: pt is a 35 year-old male who was admitted to hospital for cellulitis left face, IV antibiotic treatment, not improved, pt requests to do I/D abscess on left forehead, IMP: left forehead cellulitis with abscess, Plan, I recommend to do I/D left forehead abscess tomorrow, base on pt had Dinner tonight, I called pt's , to get consent, but no one answer the phone, I will call his tomorrow, NPO after MN, pt agrees with the surgery after D/W benefits, risks nad alternatives of the surgery, History of Present Illness Reason for Consultation: abscess on left forehead Requesting Physician: Dotty Davis MD Attending Physician: Kevin Soliz MD History of Present Illness Chief Complaint: facial swelling Primary Care Provider: Leah Davis DO This is a 35yo M with PMH of alcohol use who presents with worsening swelling and pain on forehead extending to eyes. Endorses pimple/boil on mid-left forehead a few days ago that grew larger and he attempted to "pop" last evening. Became more painful and soon after developed swelling to forehead region extending to left periorbital region of the forehead. Presented to the ED for evaluation late yesterday evening and underwent a CT scan that revealed periorbital cellulitis at that time. He was given IV clindamycin and discharged home on PO clindamycin. Developed worsening edema early this morning into today extending to R periorbital region as well prompting return to ER. Endorses pain throughout face, specifically on forehead near original lesion. Also with impaired visual gan due to swelling. When he "opens" eyelids manually he denies any visual disturbance. Denies any fever, chills, lightheadedness, chest pain, SOB, nausea, vomiting, abdominal pain, dysuria, diarrhea or constipation. I ( Kamilla Farrar MD ) got a call for consult I/D left forehead abscess, I reviewed pt's H/P, labs, CT scan with pt, Allergies Allergy/AdvReac Type Severity Reaction Status Date / Time No Known Allergies Allergy Unknown Verified 04/14/21 22:15 Home Medications Medication Instructions Recorded Confirmed Type ibuprofen 200 mg tablet 400 - 600 mg PO Q6H PRN 04/14/21 04/15/21 History clindamycin HCl 300 mg capsule 300 mg PO QID 10 Days #40 cap 04/15/21 04/15/21 Rx hydrocodone 5 mg-acetaminophen 325 1 tab PO Q6H PRN #12 tab 04/15/21 04/15/21 Rx mg tablet Past Med/Surg History Medical History Alcohol use No significant past medical history Surgical History H/O hernia repair H/O right knee surgery Family History Other Heart disease Social History (Updated 04/15/21 @ 17:50 by Mariza Hutchins PA-C) Smoking Status: Current every day smoker Tobacco Type: E-cigarettes / Vaping Second Hand Exposure: No; Do You Dip or Chew Tobacco: No; Tobacco Cessation Education Requested by Patient: No Hx Alcohol Use: Yes Alcohol type: beer Alcohol Intake Frequency: 2-3 x/Week Alcohol Intake Frequency Comment: 4+ beers daily, last drink yesterday Hx Substance Use: No Preferred Language: French Communication Ability: Effective Assistant Buyer Required: No Beliefs That Will Affect Care: None Current Living Situation: Spouse Other Information That Helps Us Care for You: No Feels Safe at Home: Yes Safety Concerns: Feels Safe At This Time Assistive Devices: None Review of Systems Review of Systems: At least ten systems reviewed and negative except as noted in the HPI. Allergies Allergy/AdvReac Type Severity Reaction Status Date / Time No Known Allergies Allergy Unknown Verified 04/14/21 22:15 Home Medications Medication Instructions Recorded Confirmed Type ibuprofen 200 mg tablet 400 - 600 mg PO Q6H PRN 04/14/21 04/15/21 History clindamycin HCl 300 mg capsule 300 mg PO QID 10 Days #40 cap 04/15/21 04/15/21 Rx hydrocodone 5 mg-acetaminophen 325 1 tab PO Q6H PRN #12 tab 04/15/21 04/15/21 Rx mg tablet Patient History Medical History Alcohol use No significant past medical history Surgical History H/O hernia repair H/O right knee surgery Family History Other Heart disease Social History (Updated 04/15/21 @ 17:50 by Mariza Hutchins PA-C) Smoking Status: Current every day smoker Tobacco Type: E-cigarettes / Vaping Second Hand Exposure: No; Do You Dip or Chew Tobacco: No; Tobacco Cessation Education Requested by Patient: No Hx Alcohol Use: Yes Alcohol type: beer Alcohol Intake Frequency: 2-3 x/Week Alcohol Intake Frequency Comment: 4+ beers daily, last drink yesterday Hx Substance Use: No Preferred Language: French Communication Ability: Effective Assistant Buyer Required: No Beliefs That Will Affect Care: None Current Living Situation: Spouse Other Information That Helps Us Care for You: No Feels Safe at Home: Yes Safety Concerns: Feels Safe At This Time Assistive Devices: None Physical Exam Constitutional: WD/WN, vitals as above Eyes: left eye soft tissue edema, redness on left forehead, ENMT: external ear and nose normal, oropharynx normal Respiratory: normal respiratory effort, lungs clear to auscultation Cardiovascular: RRR, no murmur, no edema Gastrointestinal (Abdomen): normal bowel sounds, soft, nontender, no hepatosplenomegaly Neurologic: patellar DTR's 2+ bilat, sensation intact Psychiatric: A+Ox3, euthymic affect Results & Data ([facility]) Vital Signs (Past 12 Hours) Vital Signs Temp Pulse Resp BP Pulse Ox 04/17/21 15:29 36.9 C 74 20 138/89 96 04/17/21 11:42 37.0 C 84 19 137/90 97 Laboratory Results Abnormal lab results 04/17/21 04/17/21 Range/Units 05:28 05:28 RBC 3.91 L (4.7-6.1) M/uL Hgb 11.8 L (14.0-18.0) g/dL Hct 35.2 L (42-52) % MPV 10.9 H (7.4-10.4) fL Chloride 113 H (98-107) mmol/L Calcium 8.0 L (8.5-10.1) mg/dl Diagnostic Findings CT facial bones w con HISTORY: 35 years-old Male L>R periorbital edema, erythema, pain. Acute facial pain and swelling COMPARISON: CT maxillofacial 04/14/2021 TECHNIQUE: Multiple axial CT images of the maxillofacial bones were obtained following the intravenous administration of 93 mL Optiray 320. A dose lowering technique was used consistent with the principals of ANEUDY. FINDINGS: Moderate subcutaneous edema with skin thickening of the forehead ascending into the left periorbital tissues and lateral left cheek. The subcutaneous edema within the left lateral cheek has progressed. Mild right periorbital subcutaneous edema has also mildly progressed. Ill-defined peripherally enhancing collection in the left prefrontal distribution on image 11 suggestive of phlegmon redemonstrated measuring 1.2 cm. No drainable fluid collection. Bilateral optic nerve drusen's. The bilateral globes, orbits and post septal tissues are otherwise unremarkable. Streak artifact from dental amalgam hardware. No pathologically enlarged lymph nodes. Patent airway. The imaged intracranial structures appear unremarkable. No acute fracture. Mastoid air cells and middle ear cavities are clear. No osseous erosions. Scattered dental caries redemonstrated with periapical lucency is noted involving the left mandibular central incisor and left maxillary central incisor. IMPRESSION: 1. Mildly progressed facial and periorbital cellulitis with unchanged 1.2 cm phlegmon within the left frontal soft tissues. 2. No post septal inflammatory changes. No drainable fluid collection. 3. Odontogenic disease as above.
[2021-04-17] MEDS: MELATONIN 3 MG TAB PO PRN (22:14)
[2021-04-18] MEDS: LORazepam 2 MG/4 ML VIAL IV PRN (02:26)
[2021-04-18] MEDS: GABAPENTIN 600 MG TAB PO SCH ×2 (05:28→13:10)
[2021-04-18] MEDS: LINEZOLID 600 MG/300 ML BAG IV SCH ×2 (05:28→16:57)
[2021-04-18 06:09] LABS: Hematocrit (blood only) 39.2 % (42-52); Hemoglobin 13.4 g/dL (14.0-18.0); Mean Corpuscular Hgb Conc 34.2 g/dL (32-36); Mean Corpuscular Volume 87.9 fL (80-100); Mean Platelet Volume 10.4 fL (7.4-10.4); Platelet Count 208 K/uL (130-400); RDW Coefficient of Variation 12.6 % (11.5-14.5); RDW Standard Deviation 40.5 fL (36.4-46.3); Red Blood Count 4.46 M/uL (4.7-6.1)
[2021-04-18 06:39] LABS: BUN Creatinine Ratio 7.3 (10-20); Calcium 8.6 mg/dl (8.5-10.1); Creatinine Clr Calc Pharmacy 136.7 ml/min; Est GFR (African American) 133.3 ml/min; Magnesium 2.3 mg/dl (1.8-2.4); Potassium 3.1 mmol/L (3.5-5.1)
[2021-04-18] MEDS ORDERED: GABAPENTIN 600 MG TAB PO SCH (09:15)
[2021-04-18] MEDS: NICOTINE 14 MG/24 HR PATCH TD SCH (09:35)
[2021-04-18] MEDS: FOLIC ACID 1 MG TAB PO SCH (10:17)
[2021-04-18] MEDS ORDERED: BACITRACIN OINT 15 GM TUBE EXT SCH (11:00)
--- NOTE | 2021-04-18 12:11 | Surgery Progress Note ---
Date of Service April 18, 2021 Assessment & Plan (1) Periorbital cellulitis: Plan: Significantly improved with IV antibiotics CT scan showing phlegmon with no drainable fluid collection Exam todays shows significant improvement Wound culture obtained OR case cancelled Topical bacitracin recommended to wound daily Continue IV Linezolid per ID recommendations Regular diet (2) Cellulitis of face: Plan: plan as above Dr. Farrar has seen and examined pt, agrees with above Admission and Anticipated Discharge Date Admission Date: April 15, 2021 Subjective feeling better, swelling around eye and forehead is much better feeling dizzy has no had anything to eat or drink as he was npo, thirsty Physical Exam Constitutional: well developed and well nourished; no acute distress and not ill appearing Eyes: There is erythema of the left forehead with small boil , cellulitis surrounding left eye has significantly improved. Patient able to have both eyes open and not visual complications Psychiatric: Orientation: alert and oriented x 3 Results & Data ([facility]) Vital Signs (Past 12 Hours) Vital Signs Temp Pulse Pulse Resp BP BP Pulse Ox 04/18/21 10:40 36.9 C 84 16 131/85 97 04/18/21 10:00 80 04/18/21 08:01 36.7 C 82 19 143/95 H 99 04/18/21 03:21 36.5 C 77 20 121/73 95 Laboratory Results 04/18/21 04/18/21 Range/Units 05:50 05:50 WBC 6.40 (4.8-10.8) K/uL RBC 4.46 L (4.7-6.1) M/uL Hgb 13.4 L (14.0-18.0) g/dL Hct 39.2 L (42-52) % MCV 87.9 (80-100) fL MCH 30.0 (25-34) pg MCHC 34.2 (32-36) g/dL RDW Std Deviation 40.5 (36.4-46.3) fL RDW Coeff of Suzanne 12.6 (11.5-14.5) % Plt Count 208 (130-400) K/uL MPV 10.4 (7.4-10.4) fL Sodium 139 (136-145) mmol/L Potassium 3.1 L (3.5-5.1) mmol/L Chloride 108 H (98-107) mmol/L Carbon Dioxide 26 (21-32) mmol/L Anion Gap 5.0 (3-11) BUN 6 L (7-18) mg/dl Creatinine 0.84 (0.6-1.4) mg/dl Est Cr Clr Drug Dosing 136.7 ml/min Est GFR ( Amer) 133.3 ml/min Est GFR (Non-Af Amer) 115.0 ml/min BUN/Creatinine Ratio 7.3 L (10-20) Glucose 109 H (70-99) mg/dl Calcium 8.6 (8.5-10.1) mg/dl Phosphorus 3.0 (2.5-4.9) mg/dl Magnesium 2.3 (1.8-2.4) mg/dl Microbiology 04/15/21 17:46 Aerobic Blood Culture - Preliminary Blood No growth in Aerobic bottle after 48 hours. Anaerobic Blood Culture - Preliminary No growth in Anaerobic bottle after 48 hours. 04/15/21 14:21 Aerobic Blood Culture - Preliminary Blood No growth in Aerobic bottle after 48 hours. Anaerobic Blood Culture - Preliminary No growth in Anaerobic bottle after 48 hours.
--- NOTE | 2021-04-18 18:37 | Discharge Summary ---
Date of Service April 18, 2021 Admission HPI Per Admitting Provider This is a 35yo M with PMH of alcohol use who presents with worsening swelling and pain on forehead extending to eyes. Endorses pimple/boil on mid-left forehead a few days ago that grew larger and he attempted to "pop" last evening. Became more painful and soon after developed swelling to forehead region extending to left periorbital region of the forehead. Presented to the ED for evaluation late yesterday evening and underwent a CT scan that revealed periorbital cellulitis at that time. He was given IV clindamycin and discharged home on PO clindamycin. Developed worsening edema early this morning into today extending to R periorbital region as well prompting return to ER. Endorses pain throughout face, specifically on forehead near original lesion. Also with impaired visual gan due to swelling. When he "opens" eyelids manually he denies any visual disturbance. Denies any fever, chills, lightheadedness, chest pain, SOB, nausea, vomiting, abdominal pain, dysuria, diarrhea or constipation. Principal Diagnosis facial boil, left forehead with secondary bilateral pre-orbital cellulitis Cellulitis of face Alcohol abuse Discharge Exam General Appearance: WD/WN, vitals as above, NAD, sitting up in bed, pleasant, conversing easily Head: normocephalic, atraumatic Eyes: significant periorbital edema L>R, PERRL when eyelids manually opened, conjunctivae normal, anicteric sclerae ENT: external ear and nose normal, oropharynx normal Neck: normal visual inspection, trachea midline, no thyromegaly Respiratory: normal respiratory effort, lungs clear to auscultation, no wheeze, rales, rhonchi. No accessory muscle use Cardiovascular: regular rate, rhythm, no murmur, normal peripheral pulses, no BLE edema. Vessels: no JVD Chest: normal inspection of chest Abdomen/GI: normal bowel sounds, soft, nontender, no hepatosplenomegaly Extremities/Musculoskeletal: no cyanosis or clubbing, extremities motor strength 5/5 Neurologic: PERRL, EOMI, accommodation nl, no face palsy, no dysarthria, CN's II-XI intact bilaterally and moves all extremities Psychiatric: A+Ox3, euthymic affect Skin: normal color, warm/dry. + Mid left forehead with appearance of furuncle with surrounding erythema and edema that is painful to touch. Edema extends to periorbital region bilaterally Discharge Data Allergies Allergy/AdvReac Type Severity Reaction Status Date / Time No Known Allergies Allergy Unknown Verified 04/14/21 22:15 Consultations 04/15/21 15:31 ED Decision to Admit Stat 04/15/21 17:22 Consult Ophthalmology Routine 04/16/21 08:00 Consult Infectious Diseases Routine 04/17/21 15:48 Consult General Surgery Routine Procedures Performed Operation Date: 04/18/21 07:00 <No data on this case meets the specified criteria> Ordered Studies Laboratory Results WBC 6.40 K/uL (4.8-10.8) 04/18/21 05:50 RBC 4.46 M/uL (4.7-6.1) L 04/18/21 05:50 Hgb 13.4 g/dL (14.0-18.0) L 04/18/21 05:50 Hct 39.2 % (42-52) L 04/18/21 05:50 MCV 87.9 fL (80-100) 04/18/21 05:50 MCH 30.0 pg (25-34) 04/18/21 05:50 MCHC 34.2 g/dL (32-36) 04/18/21 05:50 RDW Std Deviation 40.5 fL (36.4-46.3) 04/18/21 05:50 RDW Coeff of Suzanne 12.6 % (11.5-14.5) 04/18/21 05:50 Plt Count 208 K/uL (130-400) 04/18/21 05:50 MPV 10.4 fL (7.4-10.4) 04/18/21 05:50 Immature Gran % (Auto) 0.4 % 04/15/21 12:34 Neut % (Auto) 78.3 % 04/15/21 12:34 Lymph % (Auto) 11.5 % 04/15/21 12:34 [place] % (Auto) 7.6 % 04/15/21 12:34 Eos % (Auto) 2.0 % 04/15/21 12:34 Baso % (Auto) 0.2 % 04/15/21 12:34 Neut # (Auto) 7.92 K/uL (1.4-6.5) H 04/15/21 12:34 Lymph # (Auto) 1.16 K/uL (1.2-3.4) L 04/15/21 12:34 [place] # (Auto) 0.77 K/uL (0.11-0.59) H 04/15/21 12:34 Eos # (Auto) 0.20 K/uL (0-0.5) 04/15/21 12:34 Baso # (Auto) 0.02 K/uL (0-0.2) 04/15/21 12:34 Immature Gran # (Auto) 0.04 K/uL (0.00-0.02) H 04/15/21 12:34 ESR 5 mm/hr (0-15) 04/15/21 12:34 Sodium 139 mmol/L (136-145) 04/18/21 05:50 Potassium 3.1 mmol/L (3.5-5.1) L 04/18/21 05:50 Chloride 108 mmol/L (98-107) H 04/18/21 05:50 Carbon Dioxide 26 mmol/L (21-32) 04/18/21 05:50 Anion Gap 5.0 (3-11) 04/18/21 05:50 BUN 6 mg/dl (7-18) L 04/18/21 05:50 Creatinine 0.84 mg/dl (0.6-1.4) 04/18/21 05:50 Est Cr Clr Drug Dosing 136.7 ml/min 04/18/21 05:50 Est GFR ( Amer) 133.3 ml/min 04/18/21 05:50 Est GFR (Non-Af Amer) 115.0 ml/min 04/18/21 05:50 BUN/Creatinine Ratio 7.3 (10-20) L 04/18/21 05:50 Glucose 109 mg/dl (70-99) H 04/18/21 05:50 Calcium 8.6 mg/dl (8.5-10.1) 04/18/21 05:50 Phosphorus 3.0 mg/dl (2.5-4.9) 04/18/21 05:50 Magnesium 2.3 mg/dl (1.8-2.4) 04/18/21 05:50 Total Bilirubin 1.2 mg/dl (0.2-1) H D 04/15/21 12:34 AST 21 U/L (15-37) 04/15/21 12:34 ALT 36 U/L (12-78) 04/15/21 12:34 Alkaline Phosphatase 81 U/L (45-117) 04/15/21 12:34 C-Reactive Protein 1.23 mg/dl (0-0.29) H 04/15/21 12:34 Total Protein 7.3 gm/dl (6.4-8.2) 04/15/21 12:34 Albumin 3.9 gm/dl (3.4-5.0) 04/15/21 12:34 Globulin 3.4 gm/dl (2.5-4.0) 04/15/21 12:34 Albumin/Globulin Ratio 1.1 (0.9-2) 04/15/21 12:34 Procalcitonin < 0.05 ng/ml (0-0.5) 04/15/21 14:21 Vancomycin Trough 10.5 mcg/ml (See Comment) 04/17/21 05:28 COVID-19 Eval Order Covid19 at [facility] 04/15/21 15:43 SARS-CoV-2 (PCR) NEGATIVE (Negative) 04/15/21 15:[address] 04/15/21 14:23 CT facial bones w con HISTORY: 35 years-old Male L>R periorbital edema, erythema, pain. Acute facial pain and swelling COMPARISON: CT maxillofacial 04/14/2021 TECHNIQUE: Multiple axial CT images of the maxillofacial bones were obtained following the intravenous administration of 93 mL Optiray 320. A dose lowering technique was used consistent with the principals of ANEUDY. FINDINGS: Moderate subcutaneous edema with skin thickening of the forehead ascending into the left periorbital tissues and lateral left cheek. The subcutaneous edema within the left lateral cheek has progressed. Mild right periorbital subcutaneous edema has also mildly progressed. Ill-defined peripherally enhancing collection in the left prefrontal distribution on image 11 suggestive of phlegmon redemonstrated measuring 1.2 cm. No drainable fluid collection. Bilateral optic nerve drusen's. The bilateral globes, orbits and post septal tissues are otherwise unremarkable. Streak artifact from dental amalgam hardware. No pathologically enlarged lymph nodes. Patent airway. The imaged intracranial structures appear unremarkable. No acute fracture. Masto id air cells and middle ear cavities are clear. No osseous erosions. Scattered dental caries redemonstrated with periapical lucency is noted involving the left mandibular central incisor and left maxillary central incisor. IMPRESSION: 1. Mildly progressed facial and periorbital cellulitis with unchanged 1.2 cm phlegmon within the left frontal soft tissues. 2. No post septal inflammatory changes. No drainable fluid collection. 3. Odontogenic disease as above. ACT 112: Negative or not required by law. The above report was generated using voice recognition software. It may contain grammatical, syntax or spelling errors. Electronically signed by: Duc Odell M.D. 04/15/2021 3:20 PM Hospital Course (1) Periorbital cellulitis: (2) Periorbital edema of both eyes: (3) Cellulitis of face: (4) Alcohol withdrawal: Patient is a 35-year-old man with a history of heavy alcohol use who presented with progressive swelling and erythema over his forehead involving both of his eyes. He was admitted to the hospitalist service and the case was discussed with Dr. Chris, a local seed sales manager, who recommended repeating CT scan to ensure no orbital involvement. If a CT revealed mildly progressed facial and periorbital cellulitis with unchanged 1.2 cm phlegmon within the left frontal soft tissues. There was no post septal inflammatory changes and no drainable fluid collection. He was given IV Zosyn and vancomycin in the ER and continued on vancomycin, Rocephin and metronidazole.He improved markedly the next day. On 04/17, infectious disease saw him via telemedicine. Their impression was this was a facial boil of the left forehead with secondary bilateral preorbital cellulitis and swelling with no retro-orbital involvement. Warm compresses 3-5 times a day were recommended. He was advised not to apply external pressure. As the organism was thought to be most certainly Staphylococcus aureus, vancomycin was changed to linezolid 600 mg p.o. twice daily for short course. A simple incision and drainage which was also recommended, however, when general surgery went to sivakumar his forehead on 04/18, this was spontaneously draining and no bedside incision and drainage was performed. He was sent home in stable condition with close primary care follow-up recommended. With respect to his a lcohol abuse, some withdrawal was noted and he was placed on gabapentin taper with as needed Ativan given during his hospital stay. Complete alcohol cessation was strongly recommended. This was also discussed with his who was present at time of discharge. Total Time Total Time Spent Total Time Spent (In Minutes): 60 Discharge Plan Discharge Items Patient Disposition: Home - Self-Care Reason For Visit: PERIORBITAL AND FACIAL CELLULITIS Discharge Diagnosis: facial boil, left forehead with secondary bilateral pre-orbital cellulitis Cellulitis of face Alcohol abuse alcohol withdrawal Condition on Discharge: Good Activity: Resume your previous activity Non-emergency contact: Primary Care Provider Call non-emergency contact if: you have any medication questions, your symptoms worsen, your pain is not controlled, your pain is worsening, your pain is unusual for you, your pain is concerning for you, you have a fever, your wound has increased redness, your wound has increased drainage and your wound pain has increased Follow-up/Referrals: Leah Davis, [Primary Care Provider] - Diet: Regular Addtl Attending Provider Instructions: Please take all medications as instructed on discharge list below. Please continue the antibiotic given below until complete. It is recommended that you follow-up with your primary care provider within one week. This will be to ensure that your vision issues are improving with continued treatment. Also, to look at your wound and make sure this is healing well. It is highly recommended that you quit drinking alcohol as this is bad for your health and may cause dependence that can be dangerous. Please work with your primary care physician or local support services in your area to stay quit. It was a pleasure taking care of you! Please call if you have any questions or problems. You can reach a [facility] hospitalist on duty at [facility] 24 hours a day by calling [phone]. Take care of yourself. Shanell Peters DO [facility] Hospitalist Pending Studies at Discharge: No Stand-Alone Forms: [facility] Medications and DC Order Prescriptions: New linezolid 600 mg tablet 600 mg PO BID Qty: 10 RF: 0 Continued ibuprofen 200 mg Tablet 400 - 600 mg PO Q6H PRN (Reason: Pain) RF: 0 hydrocodone-acetaminophen 5-325 mg tablet 1 tab PO Q6H PRN (Reason: pain) Qty: 12 RF: 0 Discontinued clindamycin HCl 300 mg capsule 300 mg PO QID 10 Days Qty: 40 RF: 0 Discharge Orders: Discharge Order (Routine); Ordered 04/18/21 Ordered By: Shanell Peters Admission Data Admit Date/Time: 04/15/21 16:03 Attending Provider: Shanell Peters Admit Provider: Kevin Soliz Primary Care Provider: Leah Davis Other Providers: Kevin Soliz ; Homer Chris ; Javan Fox ; Jann Kruger ; Venkatesh Hutchins I. ; Richie Almendarez II ; Nhung Vargas ; Edward Shetty ; Kamilla Farrar Other Interventions: Discharge Summary Assessment (RN) Last Done: 04/18/21 18:40
[2021-04-19] MEDS ORDERED: GABAPENTIN 600 MG TAB PO SCH ×2 (13:15)
[2021-04-20] MEDS ORDERED: GABAPENTIN 600 MG TAB PO SCH (12:00)
[2021-04-21] MEDS ORDERED: GABAPENTIN 600 MG TAB PO SCH (01:15)
== END 2021-04-18 19:10 | disposition home or self-care (01) | DRG 603 ==
LOC: ED 12:01 → SUATTDRO 16:03 → 2S 16:03
DX: L02.01 Cutaneous abscess of face; B95.61 Methicillin susceptible Staphylococcus aureus infection as the cause of diseases classified elsewhere; L03.211 Cellulitis of face; L03.213 Periorbital cellulitis; F17.290 Nicotine dependence, other tobacco product, uncomplicated; L02.02 Furuncle of face; Z20.822 Contact with and (suspected) exposure to COVID-19; F10.139 Alcohol abuse with withdrawal, unspecified